=== PATIENT | male | born 1990 | race Caucasian/White ===

== ENCOUNTER 2017-05-10 13:24 | Emergency (ER) | payer OTHER ==
[~2017-05-10] VITALS: Ht 170.2 cm; Wt 60.8 kg
[~2017-05-10 13:24] MED LIST: ADDERALL XR30 MG PO; EFFEXOR75 MG PO; ZOLOFT100 MG PO
[2017-05-10 14:11] LABS: HEMATOCRIT 45.3 % (38.0-50.0); MCH 30.2 PG (29.0-34.0); MCHC 35.1 G/DL (30.0-36.0); MCV 86.1 FL (86-99); MEAN PLAT.VOLUME 9.3 uM^3 (9.0-12.4); PLATELET COUNT 205 K/uL (156-360); RBC DIS.WIDTH-CV 11.3 % (11.8-14.6); RBC DIS.WIDTH-SD 35.7 % (39-53); RED BLOOD COUNT 5.26 M/uL (4.00-5.50); WHITE BLOOD COUNT 7.2 K/uL (4.1-10.2)
[2017-05-10 14:19] LABS: CHLORIDE 105 mEq/L (99-109); POTASSIUM 4.4 mEq/L (3.7-5.4); SODIUM 139 mEq/L (136-147)
[2017-05-10 14:21] LABS: GLUCOSE 86 mg/dL (70-99)
[2017-05-10 14:22] LABS: ANION GAP 9 MEQ/L (2-14)
[2017-05-10 14:25] LABS: GFR ESTIMATE (CALCULATED) > 59 mL/min/
[2017-05-10 14:26] LABS: UREA NITROGEN (BUN) 13 mg/dL (9-23)
[2017-05-10 14:32] LABS: TROP-I INTERPRETATION NEGATIVE; TROPONIN-I < 0.01 ng/mL (0.0-0.30)
[2017-05-10 16:06] VITALS: BP 109/69
== END 2017-05-10 16:07 | disposition home or self-care (01) ==
LOC: EME 13:24
DX: T50.995A Adverse effect of other drugs, medicaments and biological substances, initial encounter (principal); R45.1 Restlessness and agitation; F17.200 Nicotine dependence, unspecified, uncomplicated
CPT/HCPCS: 80048; 81003; 84484; 85027; 93005; 99281; 99283

== ENCOUNTER 2017-09-03 13:18 | Emergency (ER) | payer OTHER ==
[~2017-09-03] VITALS: Ht 170.2 cm; Wt 61.0 kg
[~2017-09-03 13:18] MED LIST changes: +AUGMENTIN875 MG PO
[2017-09-03 15:41] VITALS: BP 113/79
== END 2017-09-03 15:41 | disposition home or self-care (01) ==
LOC: EME 13:18
PROC: 3E0234Z Introduction of Serum, Toxoid and Vaccine into Muscle, Percutaneous Approach (ICD-10-PCS; principal; 2017-09-03)
DX: Z20.3 Contact with and (suspected) exposure to rabies (principal); Z23 Encounter for immunization; F41.9 Anxiety disorder, unspecified; F32.9 Major depressive disorder, single episode, unspecified; F90.0 Attention-deficit hyperactivity disorder, predominantly inattentive type; F17.200 Nicotine dependence, unspecified, uncomplicated
CPT/HCPCS: 99281; 99284

== ENCOUNTER 2017-09-07 11:32 | Emergency (ER) | payer OTHER ==
[~2017-09-07] VITALS: Ht 170.2 cm; Wt 62.5 kg
[2017-09-07 14:48] VITALS: BP 125/78
== END 2017-09-07 14:53 | disposition home or self-care (01) ==
LOC: EME 11:32
PROC: 3E0234Z Introduction of Serum, Toxoid and Vaccine into Muscle, Percutaneous Approach (ICD-10-PCS; principal; 2017-09-07)
DX: Z20.3 Contact with and (suspected) exposure to rabies (principal); Z23 Encounter for immunization; F17.200 Nicotine dependence, unspecified, uncomplicated
CPT/HCPCS: 99281; 99283

== ENCOUNTER 2018-04-20 14:12 | Emergency (ER) | payer OTHER ==
[~2018-04-20] VITALS: Ht 170.2 cm; Wt 58.0 kg
[2018-04-20] MEDS ORDERED: NAPROSYN500 MG PO (15:20)
[2018-04-20] MEDS ORDERED: ULTRACET1 TABLET PO (15:20)
[2018-04-20 15:48] VITALS: BP 110/70
== END 2018-04-20 16:19 | disposition home or self-care (01) ==
LOC: EME 14:12
DX: M54.41 Lumbago with sciatica, right side (principal)
CPT/HCPCS: 72100; 99281; 99283; J8540

== ENCOUNTER 2018-04-27 20:19 | Emergency (ER) | payer OTHER ==
[~2018-04-27] VITALS: Ht 170.2 cm; Wt 58.2 kg
[~2018-04-27 20:19] MED LIST changes: +NAPROSYN500 MG PO; +ULTRACET1 TABLET PO
[2018-04-27] MEDS ORDERED: NORCO 5/3251 TABLET PO (21:30)
[2018-04-27] MEDS ORDERED: MEDROL DOSEPAK4 MG PO (21:30)
[2018-04-27] MEDS ORDERED: FLEXERIL10 MG PO (21:30)
[2018-04-27 22:13] VITALS: BP 113/72
== END 2018-04-27 22:22 | disposition home or self-care (01) ==
LOC: EME 20:19
DX: M54.16 Radiculopathy, lumbar region (principal); Z87.891 Personal history of nicotine dependence
CPT/HCPCS: 99281; 99284; J7512

== ENCOUNTER 2018-05-29 20:35 | Emergency (ER) | payer OTHER ==
[~2018-05-29] VITALS: Ht 170.2 cm; Wt 58.3 kg
[~2018-05-29 20:35] MED LIST changes: +FLEXERIL10 MG PO; +MEDROL DOSEPAK4 MG PO; +NORCO 5/3251 TABLET PO
[2018-05-29] MEDS ORDERED: PERCOCET 5/31 TABLET PO (22:33)
[2018-05-29 22:43] VITALS: BP 124/80
== END 2018-05-29 22:44 | disposition home or self-care (01) ==
LOC: EME 20:35
DX: K64.4 Residual hemorrhoidal skin tags (principal); F32.9 Major depressive disorder, single episode, unspecified; Z87.891 Personal history of nicotine dependence
CPT/HCPCS: 99281; 99284